=== PATIENT | female | born 1965 | race Hispanic/Latino ===

== ENCOUNTER 2017-10-13 10:06 | Day surgery (SDC) | payer OTHER ==
[~2017-10-13 10:06] MED LIST: NACL BACTERIOSTATIC INFILTRATI ONE
--- NOTE | 2017-10-13 10:54 | Anesthesia Consultation ---
Anesthesia Consult and Med Hx Date of service: 10/13/17 - Airway Anesthetic Teeth Evaluation: Good ROM Head & Neck: Adequate Mental/Hyoid Distance: Adequate Mallampati Class: Class II Intubation Access Assessment: Probably Good - Pulmonary Exam CTA: Yes - Cardiac Exam Cardiac Exam: RRR - Pre-Operative Health Status ASA Pre-Surgery Classification: ASA3 Proposed Anesthetic Plan: General - Pulmonary Hx Smoking: Yes Hx Respiratory Symptoms: Yes (chronic bronchitis) - Endocrine Hx Non-Insulin Dependent Diabetes: No - Other Systems Hx Obesity: Yes
--- NOTE | 2017-10-13 10:54 | Anesthesia Day of Surgery ---
Anesthesia Day of Surgery - Day of Surgery Patient Examined: Yes Patient H&P Reviewed: Yes Patient is NPO: Yes
[2017-10-13] MEDS ORDERED: VERSED IV NR (11:00)
[2017-10-13] MEDS ORDERED: PEPCID PO NR (11:00)
[2017-10-13] MEDS ORDERED: ANCEF/STERILE WATER 2 GM/20 ML IV NR (11:00)
[2017-10-13] MEDS ORDERED: LACTATED RINGERS 1,000 ML IV SCH (11:00)
[2017-10-13] MEDS ORDERED: XYLOCAINE 1% 20 mL ONE ×2 (11:08→13:14)
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
--- NOTE | 2017-10-13 12:48 | Short Stay Summary ---
Short Stay Documentation Date of service: 10/13/17 - History H&P: obtained from office - Allergies and Medications Current Medications: Allergies No Known Allergies Allergy (Unverified 10/13/17 10:35) Home Medications Medication Instructions Recorded Confirmed Last Taken Type HYDROcodone/APAP 5-325 [Mohler 1 each PO Q6HR PRN #30 tablet 10/13/17 Unknown Rx 5/325] Active Medications Cefazolin Sodium (Ancef/Sterile Water 2 Gm/20 Ml) 2 gm IV PREOP NR Stop: 10/13/17 15:00 Famotidine (Pepcid) 20 mg PO PREOP NR Stop: 10/13/17 16:00 Last Admin: 10/13/17 12:01 Dose: 20 mg Lactated Ringer's (Lactated Ringers) 1,000 mls @ 100 mls/hr IV DIRECT MICHAEL Stop: 10/13/17 16:00 Last Admin: 10/13/17 12:01 Dose: 100 mls/hr Midazolam HCl (Versed) 2 mg IV PREOP NR Stop: 10/13/17 23:59 Last Admin: 10/13/17 12:02 Dose: 2 mg - Brief post op/procedure progress note Date of procedure: 10/13/17 Pre-op diagnosis: Rigth breast papilloma Post-op diagnosis: same Procedure: Right needle localization excisional biopsy Anesthesia: GETA Findings: wire and clip present within radiograph specimen Surgeon: INESSA BERNAL Swager Operator: JIMBO MCKEON Estimated blood loss: minimal Pathology: list (right excisional biopsy) Specimen disposition: to lab Condition: stable - Disposition Condition at discharge: Good Disposition: DC-01 TO HOME OR SELFCARE Short Stay Discharge Plan Activity: other (no heavy lifting) Diet: regular Wound: other (may shower in 24 hours; no baths, pools or lakes; do not rub or scrub incision) Follow up with: INESSA BERNAL MD [Staff Physician] - 10/15/17 Prescriptions: HYDROcodone/APAP 5-325 [Mohler 5/325] 1 each PO Q6HR PRN #30 tablet PRN Reason: Pain
--- NOTE | 2017-10-13 12:51 | Operative Report ---
Operative Report Operative Report: Date of Service: October 13, 2017 Preoperative diagnosis: Right breast papilloma Postoperative diagnosis: Same Procedure: Right needle localization excisional biopsy Surgeon: Lalita Agrawal MD Anesthesia: General Findings: Right wire and clip present within radiograph specimen Complications: None EBL: Minimal Disposition: PACU in good condition Procedure in detail: This is a 51-year-old lady with recent right breast biopsied papilloma with recommendations for excisional biopsy. Patient wished to proceed with the above procedure. Procedure in detail: The patient was taken to radiology for wire placement for localization of area of concern. Patient was then taken to the operating room. Gen. anesthesia was administered. The right breast was prepped and draped in the normal sterile operative fashion. The wire was identified. Timeout was performed. Lateral breast incision was made with a 15 blade knife and dissection taken down to subcutaneous tissues. First began raising of the medial flap with removal of the wire from the skin, follwed by raising of the lateral flap, superior flap and inferior flap. The breast area of concern was appropriately removed posteriorly immediately anterior to the pectoralis muscle with the aid of the bovie cautery. The wire was not encountered. Specimen was marked and then sent to pathology and radiology; radiograph specimen with wire and clip present. Breast cavity was irrigated and hemostasis was obtained. The breast cavity was anesthetized with 1% lidocaine mixed with quarter percent Marcaine. The subcutaneous tissues were approximated and closed using interrupted 3-0 Vicryl followed by a running 4-0 Monocryl and skin affix. The patient tolerated surgery very well and she was awaken from anesthesia without any complication and transported to PACU in good condition.
[2017-10-13] MEDS ORDERED: MARCAINE 0.25% INFILTRATI ONE ×2 (13:14→13:19)
[2017-10-13] MEDS ORDERED: XYLOCAINE 1% 20 mL INFILTRATI ONE (13:19)
[2017-10-13] MEDS ORDERED: WATER FOR IRRIG STERILE IR ONE (13:19)
[2017-10-13] MEDS ORDERED: DIPRIVAN 10 MG/ML IV ONE (13:21)
[2017-10-13] MEDS ORDERED: DILAUDID ONE (13:22)
[2017-10-13] MEDS ORDERED: XYLOCAINE MPF 2% ONE (13:38)
[2017-10-13] MEDS ORDERED: DECADRON ONE (13:39)
[2017-10-13] MEDS ORDERED: TORADOL ONE (14:05)
[2017-10-13] MEDS ORDERED: ZOFRAN ONE (14:05)
[2017-10-13] MEDS ORDERED: NORCO 5/325 PO PRN (14:56)
--- NOTE | 2017-10-13 15:06 | Mammography Report ---
Specimen radiograph. Findings: A single specimen radiograph confirms the presence of the biopsy clip and hookwire.
[2017-10-13 16:24] VITALS: BP 119/65
== END 2017-10-13 16:20 | disposition home or self-care (01) ==
LOC: OR 10:06
PROVIDERS: ATTEND Surgery
DX: N60.91 Unspecified benign mammary dysplasia of right breast (principal); N63.10 Unspecified lump in the right breast, unspecified quadrant; J42 Unspecified chronic bronchitis; F17.200 Nicotine dependence, unspecified, uncomplicated; E66.9 Obesity, unspecified; Z68.35 Body mass index [BMI] 35.0-35.9, adult; Z79.899 Other long term (current) drug therapy
CPT/HCPCS: 19281; 19301; 76098; 88307; J0690; J1100; J1170; J1885; J2250; J2405; J2704; J7120